=== PATIENT | female | born 1985 | race Caucasian/White ===

== ENCOUNTER 2019-06-27 19:27 | Emergency (ER) | payer OTHER ==
[2019-06-27 20:28] LABS: ADD MAN DIFF? NO
[2019-06-27 20:29] LABS: BASOPHIL # 0.1 10^3/ul (0.0-0.1); BASOPHILS % 0.5 % (0.0-2.0); EOSINOPHILS # 0.2 10^3/ul (0.0-0.5); EOSINOPHILS % 2.5 % (0.0-7.0); HEMATOCRIT 38.6 % (37.0-47.0); HEMOGLOBIN 12.9 g/dl (12.0-16.0); LYMPHOCYTES # 1.1 10^3/ul (0.8-2.9); LYMPHOCYTES % 11.7 % (15.0-51.0); MEAN CORPUSCULAR HEMOGLOBIN 32.5 pg (29.0-33.0); MEAN CORPUSCULAR HGB CONC 33.4 g/dl (32.0-37.0); MEAN CORPUSCULAR VOLUME 97.2 fl (82.0-101.0); MONOCYTE # 0.4 10^3/ul (0.3-0.9); MONOCYTES % 4.4 % (0.0-11.0); NEUTROPHIL # 7.8 10^3/ul (1.6-7.5); NEUTROPHILS % 80.6 % (39.0-77.0); PLATELET COUNT 332 10^3/UL (140-415); RED BLOOD COUNT 3.97 10^6/ul (4.20-5.40); RED CELL DISTRIBUTION WIDTH 12.8 % (11.5-14.5)
[2019-06-27 20:29] LABS: WHITE BLOOD COUNT 9.7 10^3/ul (4.8-10.8)
[2019-06-27] MEDS: ONDANSETRON 4 MG INJ IV (20:39)
[2019-06-27] MEDS: SOD CHLORIDE 0.9% 570 ML IV (20:39)
[2019-06-27 20:44] LABS: ANION GAP 9 (5-13); BLOOD UREA NITROGEN 11 mg/dl (7-20); CALCIUM 9.4 mg/dl (8.4-10.2); CARBON DIOXIDE 23 mmol/L (21-31); CHLORIDE 104 mmol/L (97-110); CREATININE 1.75 mg/dl (0.44-1.00); Estimated GFR 33 mL/min (>60); GLUCOSE 191 mg/dl (70-220); MAGNESIUM 2.1 mg/dl (1.7-2.5); MODE ROOM AIR; MetHgb Venous 0.1 %; PHOSPHORUS 3.2 mg/dl (2.5-4.9); POTASSIUM 3.7 mmol/L (3.5-5.1); SODIUM 136 mmol/L (135-144); Sample Type Blood venous; Site VENOUS LINE; Venous COHb 0.5 %; Venous Fraction OxyHgb 61.1 %; Venous Oxygen Sat 61.5 mmHG (55.0-75.0); Venous Total Hemglobin 12.2 g/dl
[2019-06-27] MEDS: morphine 4 MG/ML VIAL IV (20:56)
[2019-06-27] MEDS: METOCLOPRAMIDE 10 MG INJ IV ×2 (21:41→23:59)
[2019-06-28] MEDS: morphine 4 MG/ML VIAL IV (00:41)
== END 2019-06-28 00:43 | disposition home or self-care (01) ==
LOC: E/R 06-28 00:43
DX: R10.9 Unspecified abdominal pain (principal); E10.9 Type 1 diabetes mellitus without complications; Z79.4 Long term (current) use of insulin; Z87.891 Personal history of nicotine dependence
CPT/HCPCS: 36415; 73630-50; 80048; 82803; 82962; 83735; 84100; 85025; 96361; 96374; 96375; 96376; 99284-25